=== PATIENT | female | born 2000 ===

== ENCOUNTER 2021-10-07 10:13 | Emergency (ER) | payer MEDICAID, SELFPAY ==
[2021-10-07 11:22] VITALS: BP 105/73; PULSE 105; RESP 18; TEMP 36.8; O2SAT 100; BMI 34.2
[2021-10-07 11:55] LABS: MANUAL DIFF FLAG NO
[2021-10-07 12:01] LABS: Basophils Percent Auto 0.1 % (0-2); Eosinophils Percent Auto 0.4 % (0-4); Hematocrit 39.8 % (37.0-47.0); Hemoglobin 12.9 g/dl (12.0-16.0); Imm Gran Abs Auto 0.02 X10*3/uL (0.00-0.03); Imm Gran Pct Auto 0.2 % (0.0-0.4); Lymphocytes Absolute Auto 1.5 X10*3/uL (1.2-4.9); Lymphocytes Percent Auto 18.2 % (20-40); Mean Corpuscular HGB Conc 32.4 g/dl (31.0-35.0); Mean Corpuscular Volume 86.5 fL (80.0-98.0); Mean Platelet Volume 10.5 fL (9.4-12.3); Monocytes Absolute Auto 0.4 X10*3/uL (0.1-1.2); Monocytes Percent Auto 4.3 % (2-11); Neutrophils Absolute Auto 6.5 x10*3/uL (2.0-8.3); Neutrophils Percent Auto 76.8 % (45-73); Platelet Count 296 X10*3/uL (160-400); Red Cell Distribution Width 12.6 % (11.0-16.0); White Blood Count 8.4 X10*3/uL (4.8-10.8)
[2021-10-07 12:21] LABS: Appearance Urine CLEAR; Color Urine STRAW; Glucose Urine UA NEG (NEG); Leukocyte Esterase Urine NEG (NEG); Nitrite Urine NEG (NEG); Specific Gravity - Urine <= 1.005 (1.005-1.025); Urine Blood NEG (NEG); Urine Ketones NEG (NEG); Urine Protein NEG (NEG-TRACE)
[2021-10-07 12:23] LABS: UPreg QC Valid YES; Urine Pregnancy NEGATIVE (NEGATIVE)
[2021-10-07 12:27] LABS: Alanine Aminotransferase 11 U/L (0-31); Albumin Level 4.5 g/dL (3.5-5.0); Alkaline Phosphatase 65 U/L (39-117); Anion Gap 12 (12-20); Aspartate Amino Transferase 19 U/L (5-31); Bilirubin Total 0.2 mg/dL (0.0-1.0); Blood Urea Nitrogen 12 mg/dL (9-16); Calcium 9.9 mg/dL (8.4-10.2); Carbon Dioxide 26 mmol/L (22-29); Chloride 102 mmol/L (96-108); Creatinine Clr Calc Pharmacy 99.1; Estimated Glomerular Filt Rate > 60; Glucose Random 110 mg/dL (60-115); Sodium 136 mmol/L (135-145); Total Protein 8.2 g/dL (6.5-8.0)
--- NOTE | 2021-10-07 13:22 | ED.FEMALEGU ---
HPI - Female Genitourinary General Chief complaint: Urogenital-Female Stated complaint: possibly exposed to STD/lesion on legs/abd pain Time Seen by Provider: 10/07/21 12:34 Source: patient Mode of arrival: ambulatory Limitations: no limitations History of Present Illness HPI Narrative: 21-year-old female came in with concern of STDs. Patient been having unprotected sex with a partner that she think is not faithful to her, patient noticed vaginal discharge with foul smell. Patient is concerned of HIV/syphilis. Patient also been having rash on her knees and her Pontic that his been itching for over a month, patient also is complaining of runny nose and sinus pressure had a history of sinusitis in the past. History of BV and herpes genitalis. Related Data Previous Rx's Medication Instructions Recorded amitriptyline 25 mg tablet 25 mg PO BEDTIME #90 tab 08/26/21 doxycycline monohydrate 100 mg 100 mg PO BID #14 tab 10/07/21 tablet Allergies Allergy/AdvReac Type Severity Reaction Status Date / Time No Known Allergies Allergy Verified 10/07/21 11:22 Review of Systems Review of Systems: All other systems are reviewed and are negative Constitutional: Reports as per HPI and Reports no additional constitutional complaints Eyes: Reports as per HPI and Reports no additional eye complaints Reports system reviewed and no additional complaints, except as documented Cardiovascular: Reports as per HPI and Reports no additional cardiovascular complaints Respiratory: Reports as per HPI and Reports no additional respiratory complaints Gastrointestinal: Reports as per HPI and Reports no additional gastrointestinal complaints Genitourinary: Reports no additional female genitourinary complaints Musculoskeletal: Reports no additional musculoskeletal complaints Skin/Breast: Reports system reviewed and no additional complaints, except as docu Psychiatric: Reports no additional psychiatric complaints Endocrine: Reports no additional endocrine complaints Hematologic/Lymphatic: Reports no additional hematologic/lymphatic complaints Allergic/Immunologic: Reports no additional allergic/immunologic complaints Reports system reviewed and no additional complaints, except as documented and Reports Abnormal speech present [facility] Past Medical History Medical History Anxiety Bipolar 1 disorder Myalgia TBI (traumatic brain injury) Physical Exam Vital Signs: Vital Signs: Last Vital Signs Temp 98.3 F 10/07/21 11:22 Pulse 105 H 10/07/21 11:22 Resp 18 10/07/21 11:22 BP 105/73 10/07/21 11:22 Pulse Ox 100 10/07/21 11:22 BMI result Body Mass Index 34.2 Vital signs have been reviewed as appeared to be correct. Blood pressure normal. Heart rate normal. Respiration rate normal. Temperature normal. Oxygen saturation normal. Appearance: Alert. Oriented X3. No acute distress. Head: Normal external exam. Normocephalic. Atraumatic. No Reveles signs noted. No raccoon eyes noted Eyes: PERRLA. EOMI. Conjunctiva and sclera normal. Eyelids normal. ENT: TM's Normal. Pharynx normal. Uvula midline. Moist mucous membranes. No trismus noted. No drooling noted. No muffled voice noted. Mild maxillary sinus tenderness with percussion, no nasal purulent discharge. Neck: Normal inspection. Neck supple. FROM. No adenopathy. Thyroid Normal. No meningeal signs. No neck mass noted. CVS: Normal heart rate and rhythm. Heart sound normal. No murmurs noted. Pulses normal throughout. Respiratory: No respiratory distress. Painless inspiration. Breath sounds normal. No wheezes/rales/rhonchi noted. Chest nontender. No accessory muscle usage noted or decreased air movement noted. Abdomen: Soft and nontender. Bowel sounds normal in all 4 quadrants. No distention noted. No organomegaly noted. No visible injury noted. Back: No CVA tenderness. Full range of motion noted. Skin: Skin warm and dry. Normal skin color. Normal skin turgor. No rashes/lesions/lacerations noted. Extremities: No lower extremity edema. Extremities exhibit normal range of motion. Extremities nontender. Neuro: Oriented X 3. Cranial nerve exam: II-XII are grossly intact No motor deficit. No sensory deficit. Reflexes normal. Course Course Course Narrative: Assessment and plan. 23-year-old female with history of unsafe sex with vaginal discharge concern of STDs, will treat prophylactically, patient do not have a PCP will check for HIV and syphilis. Patient also had symptoms of sinusitis will treat with doxycycline for 1 week for possible STD. MDM - Female Genitourinary Lab Data Result diagrams: 10/07/21 11:51 10/07/21 11:51 Labs: Lab Results 10/07/21 10/07/21 10/07/21 Range/Units 11:51 11:51 12:12 WBC 8.4 (4.8-10.8) X10*3/uL RBC 4.60 (4.20-5.50) X10*6/uL Hgb 12.9 (12.0-16.0) g/dl Hct 39.8 (37.0-47.0) % MCV 86.5 (80.0-98.0) fL MCH 28.0 (27.0-33.0) pg MCHC 32.4 (31.0-35.0) g/dl RDW 12.6 (11.0-16.0) % Plt Count 296 (160-400) X10*3/uL MPV 10.5 (9.4-12.3) fL Immature Gran % (Auto) 0.2 (0.0-0.4) % Neut % (Auto) 76.8 H (45-73) % Lymph % (Auto) 18.2 L (20-40) % Clark % (Auto) 4.3 (2-11) % Eos % (Auto) 0.4 (0-4) % Baso % (Auto) 0.1 (0-2) % Lymph # (Auto) 1.5 (1.2-4.9) X10*3/uL Clark # (Auto) 0.4 (0.1-1.2) X10*3/uL Eos # (Auto) 0.0 (0.0-0.4) X10*3/uL Baso # (Auto) 0.0 (0.0-0.2) X10*3/uL Abs Immat Gran (auto) 0.02 (0.00-0.03) X10*3/uL Absolute Neuts (auto) 6.5 (2.0-8.3) x10*3/uL Absolute Nucleated RBC 0.000 (0.0-0.012) X10*3/uL Nucleated RBC % (auto) 0.0 (0.0-0.2) /100WBC Sodium 136 (135-145) mmol/L Potassium 4.0 (3.3-5.1) mmol/L Chloride 102 (96-108) mmol/L Carbon Dioxide 26 (22-29) mmol/L Anion Gap 12 (12-20) BUN 12 (9-16) mg/dL Creatinine 0.83 (0.5-1.4) mg/dL Estim Creat Clear Calc 99.1 Estimated GFR > 60 Random Glucose 110 (60-115) mg/dL Calcium 9.9 (8.4-10.2) mg/dL Total Bilirubin 0.2 (0.0-1.0) mg/dL AST 19 (5-31) U/L ALT 11 (0-31) U/L Alkaline Phosphatase 65 (39-117) U/L Total Protein 8.2 H (6.5-8.0) g/dL Albumin 4.5 (3.5-5.0) g/dL Urine Color Urine Appearance Urine pH (5.0-8.0) Ur Specific [place] (1.005-1.025) Urine Protein (NEG-TRACE) MG/DL Urine Glucose (UA) (NEG) MG/DL Urine Ketones (NEG) MG/DL Urine Blood (NEG) Urine Nitrite (NEG) Ur Leukocyte Esterase (NEG) Urine Test NEGATIVE (NEGATIVE) 10/07/21 Range/Units 12:12 WBC (4.8-10.8) X10*3/uL RBC (4.20-5.50) X10*6/uL Hgb (12.0-16.0) g/dl Hct (37.0-47.0) % MCV (80.0-98.0) fL MCH (27.0-33.0) pg MCHC (31.0-35.0) g/dl RDW (11.0-16.0) % Plt Count (160-400) X10*3/uL MPV (9.4-12.3) fL Immature Gran % (Auto) (0.0-0.4) % Neut % (Auto) (45-73) % Lymph % (Auto) (20-40) % Clark % (Auto) (2-11) % Eos % (Auto) (0-4) % Baso % (Auto) (0-2) % Lymph # (Auto) (1.2-4.9) X10*3/uL Clark # (Auto) (0.1-1.2) X10*3/uL Eos # (Auto) (0.0-0.4) X10*3/uL Baso # (Auto) (0.0-0.2) X10*3/uL Abs Immat Gran (auto) (0.00-0.03) X10*3/uL Absolute Neuts (auto) (2.0-8.3) x10*3/uL Absolute Nucleated RBC (0.0-0.012) X10*3/uL Nucleated RBC % (auto) (0.0-0.2) /100WBC Sodium (135-145) mmol/L Potassium (3.3-5.1) mmol/L Chloride (96-108) mmol/L Carbon Dioxide (22-29) mmol/L Anion Gap (12-20) BUN (9-16) mg/dL Creatinine (0.5-1.4) mg/dL Estim Creat Clear Calc Estimated GFR Random Glucose (60-115) mg/dL Calcium (8.4-10.2) mg/dL Total Bilirubin (0.0-1.0) mg/dL AST (5-31) U/L ALT (0-31) U/L Alkaline Phosphatase (39-117) U/L Total Protein (6.5-8.0) g/dL Albumin (3.5-5.0) g/dL Urine Color STRAW Urine Appearance CLEAR Urine pH 6.0 (5.0-8.0) Ur Specific [place] <= 1.005 (1.005-1.025) Urine Protein NEG (NEG-TRACE) MG/DL Urine Glucose (UA) NEG (NEG) MG/DL Urine Ketones NEG (NEG) MG/DL Urine Blood NEG (NEG) Urine Nitrite NEG (NEG) Ur Leukocyte Esterase NEG (NEG) Urine Test (NEGATIVE) Discharge Plan Discharge Clinical Impression: Exposure to STD Patient Disposition: Home, Self-Care Instructions: Safe Sex Practices (ED) Prescriptions: New doxycycline monohydrate 100 mg tablet 100 mg PO BID Qty: 14 0RF No Action amitriptyline 25 mg tablet 25 mg PO BEDTIME Qty: 90 2RF Referrals: Physician,Unknown J [Primary Care Provider] - 2 days
[2021-10-07 14:26] LABS: CT PCR NOT DETECTED (Not Detect.); NG PCR NOT DETECTED (Not Detect.)
[2021-10-07] MEDS: cefTRIAXone sodium 500 MG, Lidocaine HCl 1 % MPF 1 ML IM (14:38)
[2021-10-07 16:03] LABS: HIV AB/AG Nonreactive (Nonreactive); HIV Num 1 0.13 S/CO (0.00-0.99)
[2021-10-08 03:40] LABS: Syphilis Screen Nonreactive (Nonreactive)
== END 2021-10-07 14:49 | disposition home or self-care (01) ==
LOC: HO.ED 13:47
PROVIDERS: Emergency Provider Emergency Medicine
DX: R21 Rash and other nonspecific skin eruption (principal); R09.89 Other specified symptoms and signs involving the circulatory and respiratory systems; Z20.2 Contact with and (suspected) exposure to infections with a predominantly sexual mode of transmission; Z79.899 Other long term (current) drug therapy
CPT/HCPCS: 36415; 80053; 81003; 81025; 85025; 86780; 87389; 87491; 87591; 96372; 99283; 99284; J0696

== ENCOUNTER → 2021-10-27 10:17 | Outpatient (BNVA) | payer OTHER, SELFPAY | PROVIDERS: PCP Internal Medicine; Visit Provider Psychiatry & Neurology Neurology | DX: G44.309 Post-traumatic headache, unspecified, not intractable (principal); M54.2 Cervicalgia; R41.89 Other symptoms and signs involving cognitive functions and awareness; R46.89 Other symptoms and signs involving appearance and behavior; S09.90XS Unspecified injury of head, sequela | CPT/HCPCS: 99212 ==

== ENCOUNTER → 2021-12-22 11:11 | Outpatient (BNVA) | payer OTHER, SELFPAY | PROVIDERS: PCP Internal Medicine; Visit Provider Psychiatry & Neurology Neurology | DX: G44.309 Post-traumatic headache, unspecified, not intractable (principal); R41.89 Other symptoms and signs involving cognitive functions and awareness; R46.89 Other symptoms and signs involving appearance and behavior; M54.2 Cervicalgia; S09.90XS Unspecified injury of head, sequela | CPT/HCPCS: 99212 ==

== ENCOUNTER 2021-12-30 13:11 | Outpatient (RCR) | payer OTHER, SELFPAY ==
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
== END 2022-05-26 13:18 | disposition still patient (30) ==
LOC: HO.SH 13:11
PROVIDERS: Visit Provider Psychiatry & Neurology Neurology
DX: R41.89 Other symptoms and signs involving cognitive functions and awareness (principal); R46.89 Other symptoms and signs involving appearance and behavior
CPT/HCPCS: 96125

== ENCOUNTER → 2022-03-27 15:17 | Outpatient (BNVA) | payer OTHER, SELFPAY | PROVIDERS: PCP Internal Medicine; Visit Provider Psychiatry & Neurology Neurology | DX: G44.309 Post-traumatic headache, unspecified, not intractable (principal); S09.90XS Unspecified injury of head, sequela; M54.2 Cervicalgia; R41.89 Other symptoms and signs involving cognitive functions and awareness; R46.89 Other symptoms and signs involving appearance and behavior | CPT/HCPCS: 99211 ==

== ENCOUNTER 2022-11-05 15:15 | Outpatient (RCR) | payer OTHER, SELFPAY | END 2022-11-27 11:39 | disposition home or self-care (01) | LOC: HO.SH 15:15 | PROVIDERS: Visit Provider Psychiatry & Neurology Neurology | DX: R41.89 Other symptoms and signs involving cognitive functions and awareness (principal); R46.89 Other symptoms and signs involving appearance and behavior | CPT/HCPCS: 92507 ==

== ENCOUNTER 2025-03-26 14:26 | Outpatient (AMB) | payer OTHER, SELFPAY ==
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
--- OUTSIDE RECORDS SUMMARY | 2025-03-26 15:09 | XMS_ITS ---
Author Name [facility] Organization Unknown Encounters Encounter Type Encounter Reason Primary Diagnosis Location Date Ambulatory [facility]ly [facility] 05/19/2024 Care Team Organization Name Specialty Phone Email Start Date End Da te [facility]ly [facility] 12/02/2024 [facility] Termed, PROVIDER Primary Care 06/16/202203/09
--- OUTSIDE RECORDS SUMMARY | 2025-03-26 15:09 | XMS_ITS | Clinical Summary ---
Author Organization [facility] Address [address] [place] [address] Care Team Providers Care Care Asst Name Role Phone Jeronimo Edwards MD Primary Care Provider [phone] Surgical History Surgery Date Site/Laterality Comments OTHER SURGICAL HISTORY PROCEDURE: DENIES PREVIOUS SURGERY Medical History Medical History Date Comments Asthma DX:Asthma Right ovarian cyst 12/08/2017 DX:Right ovar joe cyst Herpes simplex type 1 antibody positive 8 DX:Herpes simplex type 1 antibody positive Environmental allergies 02/07/2009 DX:Envir onmental allergies Depression 10/12/2014 DX:Depression Anxiety 10/12/2014 DX:Anxiety Acne 10/12/2014 DX:Acne Low back pain 07/28/2021 DX:Low back pain Asthma DX:Asthma Family History Medical History Relation Name Comments Hypertension Father Other: fibroid Mother Asthma Other MATERNAL SIDE Breast cancer Neg Hx Colon cancer Neg Hx Ovarian cancer Neg Hx Relation Name Status Comments Brother Alive 99 MAURICIO Father Alive Mother Alive Other Sister 1 Alive 1994 DAVID Sister 2 Alive 99 MARTHA Social History Tobacco Use Types Packs/Day Years Used Date Smoking Tobacco: Never Smokeless Tobacco: Never Alcohol Use Standard Drinks/Week Comments Not Currently 0 (1 standard drink = 0.6 oz pur e alcohol) Comments Unknown Sex and Gender Information Value Date Recorded Sex Assigned at Not on file Legal Sex Female 6:29 PM EST Gender Identity Not on file Sexual Orientation Not on file Obstetrics History Last Filed Vital Signs Vital Sign Reading Time Taken Comments Blood Pressure 119/77 05/21/2023 7:52 AM EDT Pulse 99 05/21/2023 7:52 AM EDT Temperature - - Respiratory Rate - - Oxygen Saturation - - Inhaled Oxygen Concentration - - Weight 77.6 kg (171 lb) 05/21/2023 7:52 AM EDT Height 152.4 cm (5') 05/21/2023 7:52 AM EDT Body Mass Index 33.4 05/21/2023 7:52 AM EDT Plan of Treatment Health Maintenance Due Date Last Done Comments Pneumococcal Vaccine: Pediatrics (0 to 5 Years) and At-Risk Patients (6 to 49 Years) (1 of 1 - PPSV23) 2005 12/28/2000, 08/19/2000, 06/22/2000 Cervical Cancer Screening: Pap Smear 2020 Cholesterol Screening (Lipid Panel) 07/11/2022 HIV Screening 07/11/2022 Hepatitis C Screening 07/11/2022 Social Influencers of Health Screening 07/11/2022 COVID-19 Vaccine ( season) 2024 10/11/2020, 09/13/2020 Depression Screening 2024 Influenza Vaccine (#1) 2025 , 06/29/2012, 07/17/2011, Additional history exists DTaP,Tdap,and Td Vaccines (8 - Td or Tdap) 01/21/2032 01/20/2022, 08/22/2010, 10/25/2003, Additional history exists HIB Vaccines Completed 12/28/2000, 02/06, 1999, Additional history exists IPV Vaccines Completed 10/25/2003, 04/10, 12/28/2000, Additional history exists MMR Vaccines Completed 10/25/2003, 12/28/2000 Varicella Vaccines Completed 08/22/2010, 06/10/2001 Meningococcal ACWY Vaccine Completed 12/08/2017, Meningococcal B Vaccine Aged Out 12/08/2017, 08/22 No longer eligible based on patient's age to complete this topic HPV Vaccines Completed 06/07/2018, 05/11, 09/13/2017, Additional history exists Hepatitis B Vaccines Completed 01/23/2022, 06/22/2000, 1999, Additional history exists Hepatitis A Vaccines Aged Out No long er eligible based on patient's age to complete this topic RSV Immunization Patients Under 20 months Aged Out No longer eligible based on patient's age to complete this topic Care Teams Care Asst Relationship Specialty Start Date End Date Jeronimo Edwards MD [address] [place] [id number] PCP - General Internal Medicine 07/18/21
== END 2025-03-26 15:06 | disposition home or self-care (01) ==
LOC: HO.HSM 14:26
PROVIDERS: PCP Internal Medicine; Referring Provider Internal Medicine; Visit Provider Registered Nurse
DX: F98.8 Other specified behavioral and emotional disorders with onset usually occurring in childhood and adolescence (principal); G43.909 Migraine, unspecified, not intractable, without status migrainosus; S06.9XAD Unspecified intracranial injury with loss of consciousness status unknown, subsequent encounter; F41.9 Anxiety disorder, unspecified; F32.A Depression, unspecified
CPT/HCPCS: 99214

== ENCOUNTER 2025-07-02 20:09 | Emergency (ER) | payer OTHER, SELFPAY ==
--- OUTSIDE RECORDS SUMMARY | 2025-06-27 12:36 | XMS_ITS | Continuity of Care Document ---
Author Organization [facility] ter Address [address] [place] [address]- Care Team Providers Care Clearing House Clerk Name Role Phone Yoanna SUAREZ, Leopoldo Primary Care Physici an [place] [facility] [place]): [place]/27/25 - 06/27/[address] [address]- Discharge Disposition: A-D/C Home Attending Physician: Batool Miner MD Admitting Physician: Batool Miner MD Referring Physician: Batool Miner MD Encounter Type: One Time OP Allergies, Adverse Reactions, Alerts No Known Allergies Immunizations Given and Recorded Vaccine Date Status Refusal Reason [id number] bivalent booster vax 07/09/22 Recorded influenza virus vaccine, inactivated 05/07/22 Alonzo rded influenza virus vaccine, inactivated 06/29/12 Alonzo rded influenza virus vaccine, inactivated 07/17/11 Alonzo rded influenza virus vaccine, inactivated 08/22/10 Alonzo rded influenza virus vaccine, inactivated 06/08/08 Alonzo rded influenza virus vaccine, inactivated 08/03/07 Alonzo rded hepatitis B adult vaccine 01/23/22 Recorded tetanus/diphtheria/pertussis, acel(Tdap) 01/20/22 Recorded tetanus/diphtheria/pertussis, acel(Tdap) 08/22/10 Recorded SARS-CoV-2 (COVID-19) mRNA-1273 vaccine 10/11/20 R ecorded SARS-CoV-2 (COVID-19) mRNA-1276 vaccine 09/13/20 R ecorded Human Papillomavirus Vaccine 06/07/18 Recorded Human Papillomavirus Vaccine 09/13/17 Recorded Human Papillomavirus Vaccine 11/11/15 Recorded Meningococcal Conjugate Vaccine 12/08/17 Recorded Meningococcal Conjugate Vaccine 08/22/10 Recorded Varicella Virus Vaccine 08/22/10 Recorded Varicella Virus Vaccine 06/10/01 Recorded Poliovirus Vaccine, Inactivated 10/25/03 Recorded Poliovirus Vaccine, Inactivated 04/29/01 Recorded Poliovirus Vaccine, Inactivated 99 Recorded Poliovirus Vaccine, Inactivated 99 Recorded Measles/Mumps/Rubella Virus Vaccine 10/25/03 Recor ded Measles/Mumps/Rubella Virus Vaccine 12/28/00 Recor ded diphtheria/tetanus/pertussis, acel(DTaP) 10/25/03 Recorded diphtheria/tetanus/pertussis, acel(DTaP) 04/29/01 Recorded diphtheria/tetanus/pertussis, acel(DTaP) 02/24/00 Recorded diphtheria/tetanus/pertussis, acel(DTaP) 99 Recorded diphtheria/tetanus/pertussis, acel(DTaP) 99 Recorded hepatitis B pediatric vaccine 06/22/00 Recorded hepatitis B pediatric vaccine 99 Recorded hepatitis B pediatric vaccine 99 Recorded Medications Albuterol (Eqv-ProAir HFA) 90 mcg/inh inhalation aerosol 2 puffs, Inhalation, Every 4 hours, # 1 each, 3 Refills, Maintenance, 03/02/25 9:56:00 PM EDT, [facility]/pharmacy #[id number], Partial fill upon patient request if the prescription is for a schedule II opioid drug., 2 puffs Inhalation Every 4 hours, 157, cm, 03/02/25 18:51:00 EDT, Height, 98, kg, 03/02/25 18:51:00 EDT, Dry Weight Start Date: 03/02/25 Status: Ordered Medication Dispense Status: Completed Quantity: 1.0 Unit: each Total Allowed Fills: 4 Fills Dispensed: 0 aspirin 81 mg oral delayed release tablet 2 tablet = 162 mg, By Mouth, Daily, # 180 tablet, 0 Refills, Maintenance, 04/19/25 2:23:00 PM EDT, CR Tablet, [facility]/pharmacy #[id number], Partial fill upon patient request if the prescription is for a schedule II opioid drug., 157, cm, 04/19/25 13:31:00 EDT, Height, 104.43, kg, 04/19/25 13:31:00 EDT, Dry Weight Start Date: 04/19/25 Status: Ordered Medication Dispense Status: Completed Quantity: 180.0 Unit: tablet Total Allowed Fills: 1 Fills Dispensed: 0 cloNIDine 0.1 mg oral tablet 0.1 mg, 1, tablet, By Mouth, 2 times a day, PRN, Maintenance, as needed for anxiety, 02/01/25 10:42:00 AM EDT Start Date: 02/01/25 Status: Ordered Medication Dispense Status: Completed Total Allowed Fills: 1 Fills Dispensed: 0 FLUoxetine 10 mg oral capsule 10 mg, 1, capsule, By Mouth, Daily, Refills 0, Maintenance, 03/19/25 10:21:00 AM EDT, Partial fill upon patient request if the prescription is for a schedule II opioid drug. Start Date: 03/19/25 Status: Ordered Medication Dispense Status: Completed Total Allowed Fills: 1 Fills Dispensed: 0 fluticasone 50 mcg/inh nasal spray 1 sprays = 50 mcg, Nares, Both, 2 times a day, PRN Congestion, # 16 Gm, 0 Refills, Maintenance, 05/07/25 3:35:00 PM EDT, [place], [facility]pharmacy #[id number], Partial fill upon patient request if the prescription is for a schedule II opioid drug., 1 sprays Nares, Both 2 times a day,PRN:Congestion, 157, cm, 05/07/25 15:02:00 EDT, Height, 109, kg, 05/07/25 15:02:00 EDT, Dry Weight Start Date: 05/07/25 Status: Ordered Medication Dispense Status: Completed Quantity: 16.0 Unit: g Total Allowed Fills: 1 Fills Dispensed: 0 Indications: Acute upper respiratory infection, unspecified; OXcarbazepine 300 mg oral tablet, extended release 1 tablet = 300 mg, By Mouth, Daily, # 30 tablet, 0 Refills, Maintenance, 06/08/25 9:29:00 AM EDT, ER Tablet, Partial fill upon patient request if the prescription is for a schedule II opioid drug. Start Date: 06/08/25 Status: Ordered Medication Dispense Status: Completed Quantity: 30.0 Unit: tablet Total Allowed Fills: 1 Fills Dispensed: 0 Plus oral tablet 1 tablet, By Mouth, Daily, Please fill vitamin that insurance covers., # 90 tablet, 5 Refills, Maintenance, 06/15/25 10:44:00 AM EST, Tablet, [facility]/pharmacy #[id number], Partial fill upon patient request if the prescription is for a schedule II opioid drug., 1 tablet By Mouth Daily,x90 days,Instr:Please fill vitamin that insurance covers., 157, cm, 06/15/25 9:48:00 EST, Height, 108.8, kg, 05/18/25 13:59:00 EDT, Dry Weight Start Date: 06/15/25 Stop Date: 12/07/26 Status: Ordered Medication Dispense Status: Completed Quantity: 90.0 Unit: tablet Total Allowed Fills: 6 Fills Dispensed: 0 QUEtiapine 100 mg oral tablet 100 mg, 1, tablet, By Mouth, Daily at bedtime, # 90 tablet, Refills 0, Maintenance, 06/08/25 9:30:00 AM EDT, Partial fill upon patient request if the prescription is for a schedule II opioid drug. Start Date: 06/08/25 Status: Ordered Medication Dispense Status: Completed Quantity: 90.0 Unit: tablet Total Allowed Fills: 1 Fills Dispensed: 0 Reglan 10 mg oral tablet 1 tablet = 10 mg, By Mouth, 4 times a day, # 120 tablet, 1 Refills, Maintenance, 05/05/25 12:03:00 AM EDT, Tablet, [facility]/pharmacy #[id number], 157, cm, 04/19/25 13:31:00 EDT, Height, 104.43, kg, 04/19/25 13:31:00 EDT, Dry Weight Start Date: 05/05/25 Stop Date: 07/04/25 Status: Ordered Medication Dispense Status: Completed Quantity: 120.0 Unit: tablet Total Allowed Fills: 2 Fills Dispensed: 0 Problem List Condition Confirmation Course Effective Dates Status H ealth Status Informant BRIDGER positive Confirmed Active Borderline personality disorder Confirmed Active Cervical radiculopathy Confirmed Active Back pain, chronic Confirmed Active Chronic pain Confirmed Active Sinus congestion Confirmed Active Constipation Confirmed Active Ear pressure Confirmed Active Endometriosis suspected Confirmed Active Echogenic intracardiac focus of fetus on ultrasound Confirmed Active Abnormal ultrasound Confirmed Active 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 Confirmed Active Herpes Confirmed Active Lumbar radiculopathy Confirmed Active Marijuana use, daily Confirmed Active Medication exposure during first trimester of Confirmed Active Obesity complicating Confirmed Active Myalgia of auxiliary muscles, head and neck Confirmed Active Raynaud phenomenon Confirmed Active Major depression, recurrent Confirmed Active Sciatica Confirmed Active Last Pap smear 03/27/2022 negative with negative HPV Confirmed Active Severe obesity (BMI 35.0-39.9) with comorbidity Confirmed Active Multilevel neural foraminal stenosis Confirmed Active TBI (traumatic brain injury) Confirmed Active Adenomyosis suspected Confirmed Active Vaginal discharge Confirmed Active Vital Signs Most recent to oldest [Reference Range]: 1 Height 157 cm (06/27/25 10:43 AM) Blood Pressure [90-138/55-84 mm Hg] 110/ 63mm Hg (06/27/25 11:01 AM) Temperature [96.8-100.4 DegF] 97.9 DegF (06/27/25 10:29 AM) Blood pressure sites Arm, right (06/27/25 11:01 AM) Temperature Route Oral (06/27/25 10:29 AM) Dry Weight 117.0 kg (06/27/25 10:29 AM) Dry Weight Obtained Via Standing scale (06/27/25 10:29 AM) Social History Social History Type Response Sexual Sexually involved in last 6 months: Yes. Smoking Status Never (less than 100 in lifetime) entered on: 03/19/25 Sex Female Sex Representation Female (finding) Note * Azra Sorto RN: PERFORM Event Display: Discharge/Transfer Note Hospital Authored Date: Nursing Discharge Note Entered On: 06/27/2025 12:31 EST Performed On: 06/27/2025 12:31 EST by Azra Sorto RN Nursing Discharge Note 2 Discharge Time : 06/27/2025 12:31 EST Discharge Level of Care at Discharge : Home/Retirement/Foster Care Patient Left Unit Via : Ambulatory Patient Accompanied Off Unit with : Significant other DC Instructions Provided & Signed by Pt : Yes Patient Understands D/C Instructions : Yes Patient Instructions Discharge Signed : Yes Did Pt have Specialty Bed or Wound Vac : No Azra Sorto RN - 06/27/2025 12:31 EST Electronically Signed on 06/27/25 12:31 PM Azra Sorto RN * Azra Sorto RN: PERFORM Event Display: Patient Education/Instruction Authored Date: [id number] Inpatient Adult Discharge Instructions. [address] [address] Name: ANN FLOYD : 2000?? Visit: 06/27/2025 10:18?? Current Date: 06/27/2025 12:26 ?? Account: [id number]?? Inpatient Adult Discharge Instructions We would like to thank you for allowing us to assist you with your healthcare needs. The following includes patient education materials and information regarding your injury/illness. Our entire staffstrives to provide an excellent experience for our patients and their families. PLEASE ENSURE YOU FOLLOW-UP PER THE INSTRUCTIONS BELOW! ?? YOUR OPINION IS IMPORTANT TO US! Please complete the survey you may receive by mail or email. Your feedback will be used to make improvements to the healthcare experiences of our patients and their families. Surveys are administered by [employer] ?? If further treatment with your primary care physician or another doctor is recommended, it is important for you to keep the appointment. Call your primary care physician or return to the Emergency Department immediately if your condition worsens, fails to improve, or new symptoms develop. If you need to find a doctor, you can call [facility] Link for a referral at [phone] or toll free at [phone] or log in to [email or web address].. ?? [facility], in keeping with [facility] guidance, no longer requires face masks for staff, patientsor visitors in most situations. Similiar to time spent indoors at other locations, there is the chance that you were exposed to repiratory viruses during your time with us (such as flu or COVID-19). If you develop symptoms concerning for a viral respiratory infection, please seek testing (and treatment if indicated) from your medical provider or home test kit. ?? You can view and manage your care through the patient portal or by using a health care ceci of your choosing. The [employer] is a website that allows you to securely view your medical information including your hospital discharge summary, office visit summaries, medications and follow-up visits. You can also request appointments, renew medications, and request access to your medical information using a health care ceci of your choosing, or just ask a question. You are entitled to know the individuals who participated in your treatment. This information is available within your medical record and will be provided upon your request. You can enroll at [email or web address] or register d uring your next office visit. You have been discharged from [facility], Patient Care Unit: [id number]??. If you have any questions regarding these instructions, including results of studies pending, afteryou leave, please call us and we will be happy to assist you 01/03. [facility] Your Care Team Attending Physician Batool Miner MD?? Consulting Providers Batool Miner MD?? Your Diagnosis Abnormal chromosomal and genetic finding on screening mother Adult BMI 40.0-44.9 kg/sq m BRIDGER positive Asthma Back pain, chronic Borderline personality disorder Echogenic intracardiac focus of fetus on ultrasound Endometriosis suspected Herpes Intrauterine Major depression, recurrent Rh negative status during Tests Performed Below is a partial list of the tests performed during your hospitalization. You may have had other tests and procedures not included in this list. Please discuss all test results with your provider. Urinalysis Complete?-- Results Pending -- Complete Urinalysis (Urinalysis Complete)?? Primary Care Provider Leopoldo Lenz MD? Advance Directive Health Care Proxy on File No Discharge Vitals Temperature: 97.9 DegF Height: 157 cm Systolic Blood Pressure: 110 mm Hg ?? Diastolic Blood Pressure: 63 mm Hg ?? Studies Pending All studies ordered during this hospital stay have been completed unless listed below. Please discuss all pending results with your provider listed above in these instructions. ?? Complete Urinalysis (Urinalysis Complete)?? What to do next Instructions From Your Doctor ?? Orders?? Scheduled Follow-Up Appointments Wednesday 2:30 PM EST ?? Type: Ultrasound FU Where: [facility] [address] [place] [address]- Status: Pending Wednesday 11:00 AM EST ?? Type: Return OB With: Suzan Boggs CNM Head Where: [facility] [employer] Non [address] [address]- Status: Pending Wednesday 1:20 PM EST ?? Type: Return OB With: Rebeca Alfaro CNM Where: [facility] [employer] Non [address] [address]- Status: Pending Wednesday2025 10:20 AM EST ?? Type: Return OB With: Yolanda Callaway CNM Where: [facility] [employer] Non [address] [address]- Status: Pending Discharge Medications ANN FLOYD :2000 Visit Date:06/27/2025 Medications: Please continue your medications until treatment is completed or stopped by your provider. Medications not listed below should be discontinued. Discuss any questions related to medications with your provider. What How Much When Why Instructions Next Dose Unchanged Albuterol (Albuterol (Eqv-ProAir HFA) 90 mcg/ inh inhalation aerosol) 2 puff(s) Inhalation Every 4 hours Ordering Physician: Lamberto Medrano MD Unchanged Aspirin (aspirin 81 mg oral delayed release tablet) 2 tab(s) Oral Daily Ordering Physician: Veronica Romero CNM Unchanged Clonidine (cloNIDine 0.1 mg oral tablet) 1 tab(s) Oral Twice a day as needed for as needed for anxiety Unchanged Fluoxetine (FLUoxetine 10 mg oral capsule) 1 capsule Oral Daily Unchanged Fluticasone Nasal (fluticasone 50 mcg/ inh nasal spray) 1 spray(s) Nares, Both Twice a day as needed for Congestion Upper respiratory infection, acute Ordering Physician: Maria L Saleem Unchanged Metoclopramide (Reglan 10 mg oral tablet) 1 tab(s) Oral 4 times a day Duration: 30 Days Ordering Physician: Inés Patel CNM Unchanged Multivitamin, ( Plus oral tablet) 1 tab(s) Oral Daily Duration: 90 Days Special Instructions: Please fill vitamin that insurance covers. Ordering Physician: Yessenia Santos CNM ?? Unchanged Oxcarbazepine (OXcarbazepine 300 mg oral tablet, extended release) 1 tab(s) Oral Daily Unchanged Quetiapine (QUEtiapine 100 mg oral tablet) 1 tab(s) Oral Daily at Bedtime Prescription Given During Visit No new medications prescribed at time of discharge.?? Laboratory Results Below is a partial list of the most recent Laboratory test results done prior to this discharge. You may have had other tests and procedures not included in this list. Please discuss all test resultswith your provider. Allergies (NKA means No Known Allergies) NKA Problems Active Problems??(28) Abnormal ultrasound?? Adenomyosis suspected?? BRIDGER positive?? Back pain, chronic?? Borderline personality disorder?? 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 Cervical radiculopathy?? Chronic pain?? Constipation?? Ear pressure?? Echogenic intracardiac focus of fetus on ultrasound?? Endometriosis suspected?? Herpes?? Last Pap smear 03/27/2022 negative with negative HPV?? Lumbar radiculopathy?? Major depression, recurrent?? Marijuana use, daily?? Medication exposure during first trimester of ?? Multilevel neural foraminal stenosis?? Myalgia of auxiliary muscles, head and neck?? Obesity complicating ? Raynaud phenomenon?? Sciatica?? Severe obesity (BMI 35.0-39.9) with comorbidity?? Sinus congestion?? TBI (traumatic brain injury)?? Vaginal discharge?? Education Materials Below is the list of Educational Leaflet Providered with your Discharge Instructions. [employer] Ignite Patient Education - Viral Syndrome (Adult)?? Valuables and Belongings I fully understand and agree that [facility] accepts no responsibility for all my personal property including clothing, toilet articles, radios, jewelry, dentures, hearing aids, rings, money, or any other property that is in my possession or is brought to me after admission. I understand certain valuables may be placed in a hospital safe for a short period of time. I understand that the hospital is not liable for loss or damage due to accident, fire, or other natural occurrence while said property is in the safe. I accept full responsibility for any personal property that I keep with me, and will not hold the hospital responsible in case of loss or disappearance. I acknowledge that i have been encouraged to send valuables and belongings home. ? Common Emergency Awareness Tips IS IT A STROKE? Act FAST and Check for these signs: FACE Does the face look uneven? ARM Does one arm drift down? SPEECH Does their speech sound strange? TIME Call at any sign of stroke ?? Heart Attack Signs Chest discomfort: Most heart attacks involve discomfort in the center of the chest and lasts more than a few minutes, or goes away and comes back. It can feel like uncomfortable pressure, squeezing, fullness or pain. Discomfort in upper body: Symptoms can include pain or discomfort in one or both arms, back, neck, jaw or stomach. Shortness of breath: With or without discomfort. Other signs: Breaking out in a cold sweat, nausea, or lightheaded. Remember, MINUTES DO MATTER. If you experience any of these heart attack warning signs, call to get immediate medical attention! ?? Smoking can increase your chances of developing chronic health problems and can cause harmful effects to other family members in your house. If you smoke, you are strongly encouraged to quit. Please call [facility] [employer] Link at [phone] or [phone] ([phone]) or log in to [email or web address] for referrals to smoking cessation programs. ?? 980 Suicide & Crisis Lifeline is available 01/03 if you or someone you know needs to find a reason to keep living. By calling 931 you'll be connected to a skilled, trained counselor at a crisis center in your area. INPATIENT DISCHARGE INSTRUCTIONS SIGNATURE PAGE ANN FLOYD Location:[facility] Registration Date and Time:06/27/2025 10:18 EST Primary Care Physician: Yoanna SUAREZ, Leopoldo, Attending Physician: Isidra SUAREZ, Batool, I ANN FLOYD, have received the above patient education materials/instructions and have verbalized understanding. If ambulance or transport services are being used I further acknowledge being given a choice of service. ?? If you need to contact me, please call me at this number: . Patient/Configuration Management Analyst Name: Patient/Configuration Management Analyst Signature: Relationship to Patient: Witness Name/Signature: Date: * Azra Sorto RN: PERFORM Event Display: Patient Education Leaflets Authored Date: [id number] Viral Syndrome (Adult) ?? [id number] Viral Syndrome (Adult) A viral illness may cause many symptoms such as fever, muscle aches, and fatigue. Other symptoms depend on the part of the body that the virus affects. If it settles in your nose, throat, and lungs, it may cause cough, sore throat, congestion, runny nose, headache, earache, or even shortness of breath. If it settles in your stomach and intestinal tract, it may cause nausea, vomiting, cramping, and diarrhea. Usually, it causes generalized symptoms like aching all over, feeling tired, loss of energy, or loss of appetite. A viral illness often lasts anywhere from a few days to a few weeks. But sometimes it lasts longer.In some cases, a more serious infection can look like a viral syndrome in the first few days of theillness. You may need another exam and additional tests to know the difference. Watch for the warning signs listed below for when to get medical advice. Home care Follow these guidelines for taking care of yourself at home: ??? If symptoms are severe, rest at home for the first 2 to 3 days. ??? Stay away from cigarette smoke???both your smoke and the smoke from others. ??? You may use [id number]-[id number]??acetaminophen or ibuprofen for fever, muscle aching, and headache, unless another medicine was prescribed for this. Antibiotics aren't used to treat viral infections. If you have chronic liver or kidney disease or ever had a stomach ulcer or gastrointestinal bleeding, talk with your health care provider before using these medicines. No one younger than age 18 years and ill with a fever should take aspirin. It may cause severe disease or . ??? Yourappetite may be poor, so a light diet is fine. Prevent dehydration by drinking 8 to 12 8-ounce glasses of fluids each day. This may include water, lemonade, juices like orange, apple, grape, and cranberry, clear fruit drinks, electrolyte replacement and sports drinks, and decaffeinated teas and coffee. If you've been diagnosed with a kidney disease, ask your provider how much and what types of fluids you should drink to prevent dehydration. If you have kidney disease, drinking too much fluid can cause it to build up in your body and be dangerous to your health. ??? Gjrs-osl-elbqfgp remedies won't shorten the length of the illness. But they may be helpful for symptoms such as cough, sore throat, nasal and sinus congestion, or diarrhea. Don't use decongestants if you have high blood pressure. ? Follow-up care Follow up with your health care provider if you don't get better over the next week. ?? Call 911 Call 911 if any of these occur: ??? Convulsion ??? Feeling weak, dizzy, or like you are going to faint ??? Chest pain, or more than mild shortness of breath ?? When to get medical advice Contact your health care provider right away if any of these occur: ??? Cough with thick, yellow orgreen sputum (mucus) or blood in your sputum. ??? Chest pain, shortness of breath, wheezing, or trouble breathing. ??? Severe headache, or face, neck, or ear pain. ??? Severe, constant pain in the lower right side of your belly (abdominal). ??? Continued vomiting (can???t keep liquids down). ??? Frequent diarrhea (more than 5 times a day), or blood (red or black color) or mucus in diarrhea. ??? Feeling weak, dizzy, or like you are going to faint. ??? Extreme thirst. ??? Fever of 100.4??F (38??C) or higher, or as directed by your provider. ??? You think you have the flu or you test positive for COVID and are at risk for severe illness. There are medicines called antivirals that can help you. ?? Last Reviewed Date: 2024 00:00:00 ?? [id number] The [employer] All rights reserved. This information is not intended as a substitute for professional medical care. Always follow your healthcare professional's instructions. ?? Patient Care team information Care Team Personnel Name: Yoanna SUAREZ, Leopoldo Position: [facility] Physician - Primary Care Member Role: PCP Address: [address] [place] [address] Telecom: Care Team Related Persons Name: PT, STATES NONE Name: FRANKLIN MENDOZA Name: MICHAEL VALERIO Insurance Providers Guarantor name: ANN [facility] Plan Information #: 1 Payer: [employer] Payer Identifier: CHRISTINA Member Number: [id number] Group Number: [id number] Subscriber Identifier: [id number] Relationship to Subscriber: self Coverage Type: Medicaid (Managed Care) Coverage Verification Date: CHRISTINA Telecom: CHRISTINA Address:
--- NOTE | ~2025-07-02 | US_ITS ---
CLINICAL HISTORY: RUQ eval for GB disease, 23 weeks preg US abdomen limited Comparison: None provided Findings: The liver is normal in size and echotexture. There is no intrahepatic bile duct dilatation. The common duct is 2 mm in diameter. The gallbladder is normal. There is no sonographic Feng sign. The main portal vein is antegrade. IMPRESSION: Unremarkable gallbladder. This document has been electronically signed by: Niurka Orantes MD on 07/02/2025 23:00:14
[2025-07-02 20:11] VITALS: BP 135/61; PULSE 112; RESP 20; TEMP 36.2; O2SAT 98; BMI 49.5
[2025-07-02 20:38] LABS: MANUAL DIFF FLAG NO
[2025-07-02 20:42] LABS: Hematocrit 34.6 % (37.0-47.0); Hemoglobin 11.1 g/dl (12.0-16.0); Imm Gran Abs Auto 0.05 X10*3/uL (0.00-0.03); Imm Gran Pct Auto 0.5 % (0.0-0.4); Lymphocytes Absolute Auto 0.7 X10*3/uL (1.2-4.9); Mean Corpuscular HGB Conc 32.1 g/dl (31.0-35.0); Mean Corpuscular Hemoglobin 26.4 pg (27.0-33.0); Mean Corpuscular Volume 82.4 fL (80.0-98.0); NRBC Abs Auto 0.000 X10*3/uL (0.0-0.012); NRBC Pct Auto 0.0 /100WBC (0.0-0.2); Platelet Count 210 X10*3/uL (160-400); Red Blood Count 4.20 X10*6/uL (4.20-5.50); White Blood Count 9.6 X10*3/uL (4.8-10.8)
[2025-07-02 20:56] LABS: Alanine Aminotransferase 19 U/L (0-31); Albumin Level 3.9 g/dL (3.5-5.0); Alkaline Phosphatase 80 U/L (39-117); Anion Gap 12 (12-20); Aspartate Amino Transferase 22 U/L (5-31); Blood Urea Nitrogen 7 mg/dL (9-16); Calcium 9.5 mg/dL (8.4-10.2); Carbon Dioxide 22 mmol/L (22-29); Chloride 106 mmol/L (96-108); Creatinine Clr Calc Pharmacy 165.8; Estimated Glomerular Filt Rate > 60; Potassium 3.8 mmol/L (3.3-5.1); Sodium 136 mmol/L (135-145); Total Protein 7.5 g/dL (6.5-8.0)
[2025-07-02 21:18] LABS: Lipase 12 U/L (8-78)
[2025-07-02 21:21] LABS: Appearance Urine Clear; Glucose Urine UA Negative (Negative); PH 7.0 (5.0-9.0); Specific Gravity - Urine <= 1.005 (1.005-1.025)
[2025-07-02 21:45] VITALS: BP 146/68; PULSE 107; RESP 16; TEMP 36.8; O2SAT 98
--- NOTE | 2025-07-02 21:59 | ED_ITS ---
HPI - Abdominal Pain General Chief Complaint: Abdominal Pain Stated Complaint: 23 wks , abd pain, dizzy, unable to eat Time Seen by Provider: 07/02/25 21:12 Source: patient Mode of arrival: ambulatory Limitations: no limitations History of Present Illness ED Provider: Dr. Lorrie Samuel HPI narrative: 24-year-old at 23 weeks? gestation who presents with 7 days of persistent epigastric abdominal pain associated with nausea and intermittent vomiting. Symptoms began last Wednesday night with sudden upper abdominal pain followed by diarrhea; pain worsened the following morning prompting a visit to [facility] visit where she was told it was likely viral gastroenteritis and advised light diet. NST was reportedly normal. She felt somewhat better but remained very hungry and consumed several pieces of bread; diarrhea persisted and was ?violent? yesterday. Early this morning (~0600) she awoke with severe, constant epigastric pain not relieved by rest. Attempts at oral intake (water, juice, soup, small meals) immediately exacerbate the pain and trigger vomiting; she has vomited three times today (including en route to ED) with associated urinary incontinence during a vomiting episode. No hematemesis. She has been unable to have a bowel movement today and feels ?backed up.? Denies fever but felt mildly warm earlier; feels achy and fatigued. Also reports a sudden, severe headache today?worse than her usual sensory-triggered migraines?and has taken no medications for it. No sick contacts. Last meal last night included beef in tomato sauce with rice and some Macedonian food that ?didn?t taste right.? No prior abdominal surgery; gallbladder and appendix intact. Colonoscopy February 2025 reportedly normal. Endoscopy one year ago for endometriosis work-up. Related Data Home Medications ?Medication ?Instructions ?Recorded ?Confirmed fluticasone propionate 50 1 spray intranasal DAILY 03/27/22 mcg/actuation nasal spray,suspension (Allergy Relief (fluticasone)) ondansetron 4 mg disintegrating 4 mg PO Q8H 10/23/21 0 03/26/25 tablet fluticasone propionate 110 1 puff inhalation BID 10/2703/27/22 mcg/actuation HFA aerosol inhaler (Flovent HFA) clonidine HCl 0.1 mg tablet 0.1 mg PO BEDTIME 03/26/25 03/26/25 oxcarbazepine 300 mg tablet 300 mg PO DAILY 03/26/25 0 03/26/25 (Trileptal) quetiapine 100 mg tablet 150 mg PO DAILY 03/26/25 Previous Rx's ?Medication ?Instructions ?Recorded albuterol sulfate 90 mcg/actuation 1 inh inhalation QI D #90 grams 10/23/21 aerosol inhaler ondansetron 4 mg disintegrating 4 mg PO Q8H PRN nausea and 07/03/25 tablet vomiting #10 tabs Allergies Allergy/AdvReac Type Severity Reaction Status Date / Time No Known Allergies Allergy Verified 07/02/25 20:13 Review of Systems Review of Systems as per HPI, full review of systems performed and negative but for the above mentioned pertinent positives and negatives. [facility] Past Medical History Medical History Myalgia Bipolar 1 disorder Anxiety TBI (traumatic brain injury) Family History Family History Father HTN (hypertension) Social History Social History Household Members: None Alcohol intake: never Patient Tobacco Use Status: Never used Tobacco Smoked in Last 30 Days: No Use of substances other than those prescribed or required for medical reasons: No Advance Directives: No Advance Directives Information Provided: No Patient : Yes Current occupational status: employed Physical Exam ED Exam Exam: GENERAL: Well-Appearing, appears uncomfortable. SKIN: Normal skin color for ethnicity, warm, dry, no rashes noted. HEENT: Normocephalic, atraumatic, no stridor, EOMI. NECK: Full ROM. CHEST: Heart regular tachycarida, symmetric chest rise and fall. PULMONARY: No labored breathing. ABDOMINAL: Gravid, nontender, quiet bowel sounds : Normal external genitalia, no , no fluid or bleeding MUSCULOSKELETAL: Normal tone, full range of motion, no deformities, no peripheral edema. NEURO: Alert and oriented x3, no focal neurologic deficits. PSYCHIATRIC: Anxious affect, fluid speech, good eye contact and cooperative. Vital Signs: Vital Signs - 24 hr 07/02/25 20:11 07/02/25 21:45 07/02/25 22:03 Temperature 97.1 F 98.2 F 98.4 F Pulse Rate 112 H 107 H 105 H Respiratory Rate 20 16 16 Blood Pressure 135/61 146/68 H 113/63 Pulse Oximetry 98 98 99 Oxygen Delivery Method Room Air Room Air Room Air BMI result Body Mass Index 49.5 Medical Decision Making Medical Decision Making MDM Narrative: 24-year-old patient (, 23 weeks) with epigastric abdominal pain, nausea/vomiting, and recent diarrhea. Differential includes biliary colic/cholelithiasis, viral gastroenteritis, gastritis, and dehydration. Labs reassuring; imaging pending. Problem #1: Epigastric abdominal pain with nausea/vomiting ? r/o biliary colic vs viral gastroenteritis Assessment: Persistent epigastric pain exacerbated by oral intake, vomiting, prior episode of diarrhea. increases gallbladder disease risk. Normal LFTs; RUQ US pending. Plan: * RUQ abdominal ultrasound today to assess gallbladder. * Begin IV fluids for rehydration. * Administer -safe antiemetic prior to any oral intake ( vitamin, aspirin). * Advance diet as tolerated; residential counselor on small, frequent meals (?grazing?). * Monitor heart rate and reassess pain after fluids/meds. Problem #2: ? 23 weeks, Assessment: No current obstetric complications reported; movement present; patient on baby aspirin for preeclampsia risk. FHTs 156bpm Plan: * Continue daily low-dose aspirin as prescribed. * Ensure vitamin given after antiemetic administration. Problem #3: Headache ? severe, atypical for usual migraine Assessment: Sudden severe headache today, worse than baseline migraines; temporally associated with nausea/vomiting. Plan: * Will administer -safe antiemetic as discussed; tylenol for analgesia. Problem #4: Dehydration / Tachycardia Assessment: Dry appearance and elevated heart rate likely secondary to fluid losses from vomiting/diarrhea. Plan: * IV crystalloid bolus; reassess vitals and hydration status. Follow-up: Patient will be re-evaluated in the ED after labs, fluids, medications, and ultrasound results. Disposition dependent on clinical response and imaging findings. 1:05 AM 07/03/2025 (Dr. Lorrie Samuel, D.O.) ultrasound shows no evidence of acute cholecystitis or cholelithiasis. The patient is now tolerating oral intake after IV hydration and antiemetics. She ultimately decided to take the Tylenol which she initially refused. Discussed importance of follow up as well as strict return precautions. Provided with short course of ondansetron for nausea. Discharged in stable condition. Differential Diagnosis Differential Diagnoses: The differential diagnosis associated with the presentation includes (as above) Admission/Observation Consideration of admission/observation: Escalation of care including admission/observation considered Lab Data MDM Lab Attestation statement: I reviewed the patient's lab results. 07/02/25 20:33 07/02/25 20:33 Labs: Lab Results 07/02/25 07/02/25 Range/Units 20:33 21:15 WBC 9.6 (4.8-10.8) X10*3/uL RBC 4.20 (4.20-5.50) X10*6/uL Hgb 11.1 L (12.0-16.0) g/dl Hct 34.6 L (37.0-47.0) % MCV 82.4 (80.0-98.0) fL MCH 26.4 L (27.0-33.0) pg MCHC 32.1 (31.0-35.0) g/dl RDW 13.7 (11.0-16.0) % Plt Count 210 D (160-400) X10*3/uL MPV 10.0 (9.4-12.3) fL Immature Gran % (Auto) 0.5 H (0.0-0.4) % Neut % (Auto) 88.0 H (45-73) % Lymph % (Auto) 7.3 L (20-40) % [place] % (Auto) 3.8 (2-11) % Eos % (Auto) 0.2 (0-4) % Baso % (Auto) 0.2 (0-2) % Lymph # (Auto) 0.7 L (1.2-4.9) X10*3/uL [place] # (Auto) 0.4 (0.1-1.2) X10*3/uL Eos # (Auto) 0.0 (0.0-0.4) X10*3/uL Baso # (Auto) 0.0 (0.0-0.2) X10*3/uL Abs Immat Gran (auto) 0.05 H (0.00-0.03) X10*3/uL Absolute Neuts (auto) 8.4 H (2.0-8.3) x10*3/uL Absolute Nucleated RBC 0.000 (0.0-0.012) X10*3/uL Nucleated RBC % (auto) 0.0 (0.0-0.2) /100WBC Sodium 136 (135-145) mmol/L Potassium 3.8 (3.3-5.1) mmol/L Chloride 106 (96-108) mmol/L Carbon Dioxide 22 (22-29) mmol/L Anion Gap 12 (12-20) BUN 7 L (9-16) mg/dL Creatinine 0.60 (0.5-1.4) mg/dL Estim Creat Clear Calc 165.8 Estimated GFR > 60 Random Glucose 88 (60-115) mg/dL Calcium 9.5 (8.4-10.2) mg/dL Total Bilirubin 0.3 (0.0-1.0) mg/dL AST 22 (5-31) U/L ALT 19 (0-31) U/L Alkaline Phosphatase 80 (39-117) U/L Total Protein 7.5 (6.5-8.0) g/dL Albumin 3.9 (3.5-5.0) g/dL Lipase 12 (8-78) U/L Beta HCG, Quant 6046 mIU/mL Urine Color Yellow Urine Appearance Clear Urine pH 7.0 (5.0-9.0) Ur Specific [place] <= 1.005 (1.005-1.025) Urine Protein Negative (Neg-Trace) mg/dL Urine Glucose (UA) Negative (Negative) mg/dL Urine Ketones Trace (Negative) mg/dL Urine Blood Negative (Negative) Urine Nitrite Negative (Negative) Ur Leukocyte Esterase Negative (Negative) Radiology Impression Discussion of test interpretation with radiology: I have reviewed the radiologist's reading. Independent Historian Clinical information obtained from an independent historian. History obtained from or confirmed by: Spouse External Record Review External record reviewed: Inpatient record and Office record Prescription Management I considered prescription management with: Pain Medication and Other (Antiemetics) Chronic Conditions Patient?s care impacted by: Other (-induced hypertension, depression, migraine headaches) Social Determinants Patient?s care significantly limited by Social Determinants of Health including: Other Social Determinant of Health Medications Administered Discontinued Medications Generic Name Dose Route Start Last Admin Trade Name Freq PRN Reason Stop Dose Admin Acetaminophen 650 mg 07/02/25 21:56 07/02/25 22:58 Acetaminophen 325 Mg Tablet PO 07/02/25 21:57 650 mg ONCE ONE Administration Lactated Ringer's 1,000 mls @ 999 mls/hr 07/02/25 21:56 07/02/25 22:58 Lr IV 07/02/25 22:56 999 mls/hr .Q1H1M ONE Administration Ondansetron HCl 4 mg 07/02/25 21:56 07/02/25 22:57 Ondansetron Hcl 4 Mg/2 Ml Vial IVPUSH 07/02/25 21:57 4 mg ONCE ONE Administration Discharge Plan Discharge Clinical Impression: Gastroenteritis, Second trimester Patient Disposition: Home, Self-Care Instructions: Gastroenteritis (ED), at 23 to 26 Weeks (ED) Additional Instructions: DIAGNOSIS & TREATMENT: You were seen in the Emergency Department for your abdominal pain. We performed lab work and an ultrasound of your gallbladder which did not reveal any acute abnormalities that would explain your symptoms. Your pain is most likely related to gastroenteritis which is the stomach flu. FURTHER CARE: We have not found any emergent physical exam or lab abnormalities that would require admission to the hospital today. Many people who come to the ER with abdominal pain do not leave with a specific diagnosis at the end of their visit. In the Emergency Department we try to make sure that there is no emergent problem that needs surgery or antibiotics right now. This does not mean that your evaluation is complete--please be sure to follow up with your regular doctor as additional testing as an outpatient may be indicated Please be certain to drink plenty of fluids over the next several. You should advance your diet as tolerated. You may wish to start with the BRAT diet (bananas, rice, applesauce, toast). WHEN YOU SHOULD BE SEEN NEXT: Please follow-up with your primary care provider and OBGYN within the next 2-3 days for reevaluation of your symptoms. WHEN TO RETURN TO THE ED: Monitor your symptoms closely and return to the emergency department immediately for any new/worsening symptoms, worsening abdominal pain, pain which changes location (particularly if it moved to the right lower quadrant), nausea, vomiting, blood in your stool, black/tarry stools, chest pain, shortness of breath, fevers, chills, night sweats, you are unable to arrange follow-up care, or any other concerning symptoms. Prescriptions: New ondansetron 4 mg tablet,disintegrating 4 mg PO Q8H PRN (Reason: nausea and vomiting) Qty: 10 0RF No Action albuterol sulfate 90 mcg/actuation HFA aerosol inhaler 1 inh inhalation QID Qty: 90 0RF fluticasone propionate [Allergy Relief (fluticasone)] 50 mcg/actuation spray,suspension 1 spray intranasal DAILY Rx Instructions: administer into each nostril ondansetron 4 mg tablet,disintegrating 4 mg PO Q8H Flovent HFA 110 mcg/actuation HFA aerosol inhaler 1 puff inhalation BID quetiapine 100 mg tablet 150 mg PO DAILY oxcarbazepine [Trileptal] 300 mg tablet 300 mg PO DAILY clonidine HCl 0.1 mg tablet 0.1 mg PO BEDTIME Print Language: [place] Islander
[2025-07-02 22:03] VITALS: BP 113/63; PULSE 105; RESP 16; TEMP 36.9; O2SAT 99
[2025-07-02] MEDS: Lactated Ringers 1,000 ML 999 ML IV (22:58)
--- OUTSIDE RECORDS SUMMARY | 2025-07-02 22:58 | XMS_ITS | Clinical Summary ---
Author Organization [employer] [facility] ity Address [address] [place] [address] Care Team Providers Care Fire Engineer Name Role Phone Jeronimo Edwards MD Primary Care Provider [phone] Surgical History Surgery Date Site/Laterality Comments OTHER [...] to 49 Years) (1 of 1 - PPSV23, PCV20, or PCV21) 2005 12/28/2000, 08/19/2000, 06/22/2000 Cervical Cancer Screening: Pap Smear 2020 Cholesterol Screening (Lipid Panel) 07/11/2022 HIV Screening 07/11/2022 Hepatitis C Screening 07/11/2022 Social Influencers of Health Screening 07/11/2022 Depression Screening 2024 COVID-19 Vaccine ( season) 2025 10/11/2020, 09/13/2020 Influenza Vaccine (#1) 2025 , 06/29/2012, 07/17/2011, Additional history exists DTaP,Tdap,and Td Vaccines (8 - Td or Tdap) 01/21/2032 01/20/2022, 08/22/2010, 10/25/2003, Additional history exists RSV Immunization Adult Patients (1 - 1-dose 75+ series) 2074 HIB Vaccines Completed 12/28/2000, 02/06, 1999, Additional [...] age to complete this topic Care Teams Fire Engineer Relationship Specialty Start Date End Date Jeronimo Edwards MD PCP - General Internal Medicine 07/18/21
--- OUTSIDE RECORDS SUMMARY | 2025-07-02 22:58 | XMS_ITS | Data Portability ---
Author Organization [place] - [facility], Allergy Address [address] [place] [address] Care Team Providers Care Optical Engineer Name Role Phone ROBERTABENITA KOURTNEY Primary Care Provider Assessment Encounter Date Assessment Date Assessment LastModified by Organization Details LastModified Time 06/29/2024 06/29/2024 23 year old female presents for evaluation of nasal congestion and sensation of fluid in the right ear. Her TMs are intact with well aerated middle ear spaces bilaterally. Nasal endoscopy was normal. I have ordered a CT of her sinuses. I have recommended that she use both Zyrtec and Flonase daily and have issued her prescriptions for these medications. We will plan to obtain a hearing test at her follow up after CT sinus. Patient was also seen and examined by Dr. Richardson. Nasal endoscopy was performed with Dr. Richardson. [email or web address] Not available 06/29/2024 12:45:45 Plan of Treatment Reminders Order Date Submit Date Provider Last Modified By Organization Details Last Modified Time Details Appointments None recorded. Lab None recorded. Referral None recorded. Procedures None recorded. Surgeries None recorded. Imaging CT, maxillofac ial, w/o contrast 2023 024 [facility] (Imaging), [address] [place] [address], [id number], 11:19:08 Medication Orders cetirizine 10 mg tablet 2023 024 [facility]/Pharmacy #[id number], [phone] [place], [address], 4 11:17:39 Flonase Allergy Relief 50 mcg/actuat ion nasal spray,susp ension 2023 024 [facility]/Pharmacy #[id number], [phone] [place], [address], 4 11:18:02 Patient TargetsNo targets recorded. Patient InstructionsNo instructions recorded. Reason for Referral None Reported. Problems Name Problem SNOMED Code Status Onset Date Resolution Date Notes Provider Name and Address Organization Details Recorded Time Impacted cerumen in left ear 44511989138 02351 Active 2019 Impacted cerumen, left ear; Note: Date Diagnosed : 03/06/2020 4:00 PM (H61.22) Not Available [facility] 4 02:20:52 Chronic sinusitis 98803251 Active 2021 Chronic sinusitis , unspecifi ed; Note: Date Diagnosed : 11/27/2021 4:39 PM (J32.9) Not Available [facility] 4 02:21:00 Allergic rhinitis 28107071 Active 2021 Allergic rhinitis, unspecifi ed; Note: Date Diagnosed : 11/27/2021 4:39 PM (J30.9) Not Available [facility] 4 02:20:59 Problem Notes None recorded. Procedures Surgical History Date Name Laterality Status Provider Name and Address Organization Details Recorded Time 06/29/2024 NasalEndos copy_DP completed Shayla Mayberry [place] - [facility] 06/29/2024 12:44:01 Imaging Results None recorded. Procedure Notes None recorded. Medical Equipment None Reported. Medications Name Sig Start Date Stop Date Status Note LastModified by Organization Details LastModified Time celecoxib 200 mg capsule TAKE 1 CAPSULE 2 TIMES A DAY, TAKE WHILE ON PERIOD CAN TAKE WITH TYLENOL DO NOT MIX WITH IBUPROFEN active Not Available Not Available No t Available terconazol e 0.4 % vaginal cream INSERT 1 APPLICATO RFUL VAGINALLY AT BEDTIME FOR 7 DAYS active Not Available Not Available No t Available oxcarbazep ine 150 mg tablet TAKE 1 TABLET BY MOUTH TWICE A DAY TAKE WITH 450MG TAB (450MG TOTAL TWICE A DAY) active Not Available Not Available No t Available clonidine HCl 0.1 mg tablet TAKE 1 TABLET BY MOUTH TWICE A DAY NEEDED FOR ANXIETY/ SLEEP active Not Available Not Available No t Available acetaminop hen 325 mg tablet TAKE 2 TABLETS BY MOUTH EVERY 4 HOURS NEEDED FOR PAIN active Not Available Not Available No t Available prednisone 10 mg tablet 2021 active Medicatio n ID: [id number] Pr escribed By Name: COMFORT Grimaldo Name: prednison e Send Method: E-Prescri bed Subs Allowed: subs OK Specia l Instructi on: Take 4 tablets by mouth once a day x 5 days [facility] cationGen ericName: prednison e Not Available Not Available Not Available clindamyci n HCl 300 mg capsule TAKE 1 CAPSULE BY MOUTH TWICE A DAY FOR 7 DAYS active Not Available Not Available No t Available Apri 0.15 mg-0.03 mg tablet TAKE 1 TABLET BY MOUTH EVERY DAY active Not Available Not Available No t Available cetirizine 10 mg tablet TAKE 1 TABLET BY MOUTH EVERY DAY 2024 active Not Available Not Available Not Avai lable fluconazol e 150 mg tablet TAKE 1 TABLET BY MOUTH ONCE *REPEAT DOSE IF STILL HAVING SYMPTOMS IN 72 HOURS active Not Available Not Available No t Available sumatripta n 100 mg tablet TAKE 1 TABLET BY MOUTH AT ONSET OF MIGRAINE, MAY REPEAT ONCE, UP TO TWICE DAILY, 9 TABS/30 DAYS active Not Available Not Available No t Available metronidaz ole 500 mg tablet TAKE 1 TABLET BY MOUTH EVERY 12 HOURS FOR 7 DAYS active Not Available Not Available No t Available oxcarbazep ine 300 mg tablet TAKE 1 TABLET BY MOUTH TWICE A DAY TAKE WITH 150MG TAB (450MG TOTAL TWICE A DAY) active Not Available Not Available No t Available valacyclov ir 500 mg tablet TAKE 1 TABLET BY MOUTH EVERY DAY active Not Available Not Available No t Available tramadol 50 mg tablet TAKE 1 TABLET BY MOUTH EVERY 12 HOURS NEEDED FOR PAIN active Not Available Not Available No t Available quetiapine 100 mg tablet TAKE 1 TABLET BY MOUTH DAILY AT BEDTIME NEEDED FOR SLEEP active Not Available Not Available No t Available dextroamph etamine sulfate 10 mg tablet TAKE 1 TABLET BY MOUTH IN THE MORNING TWICE A DAY active Not Available Not Available No t Available amitriptyl ine 25 mg tablet TAKE 3 TABLETS BY MOUTH EVERY DAY AT BEDTIME active Not Available Not Available No t Available dicyclomin e 20 mg tablet TAKE 2 TABLETS BY MOUTH 4 TIMES A DAY NEEDED FOR MODERATE PAIN FOR ABDOMINAL CRAMPING active Not Available Not Available No t Available Nortrel 0.5/35 (28) 0.5 mg-35 mcg tablet 2019 active Medicatio n ID: [id number] Du ration Value: 84 Brand Name: Nortrel 0.5/35 (28) Send Method: E-Prescri bed Subs Allowed: subs OK Specia l Instructi on: TAKE 1 TABLET BY MOUTH EVERY DAY Medic ationGene ricName: Nortrel 0.5/35 (28) Not Available Not Available Not Available buspirone 10 mg tablet TAKE 2 TABLETS BY MOUTH TWICE A DAY active Not Available Not Available No t Available hydroxyzin e HCl 25 mg tablet 2019 active Medicatio n ID: [id number] Du ration Value: 30 Brand Name: hydroxyzi ne HCl Send Method: E-Prescri bed Subs Allowed: subs OK Specia l Instructi on: TAKE 1 TABLET BY MOUTH TWICE A DAY NEEDED FOR AGITATION /ANXIETY Medicatio nGenericN liz: hydroxyzi ne HCl Not Available Not Available Not Available ibuprofen 600 mg tablet TAKE 1 TABLET BY MOUTH FOUR TIMES A DAY NEEDED FOR PAIN active Not Available Not Available No t Available fluticason e propionate 50 mcg/actuat ion nasal spray,susp ension INSTILL 2 SPRAYS BY INTRANASA L ROUTE EVERY DAY 2024 active Not Available Not Available Not Avai lable sertraline 50 mg tablet 2019 active Medicatio n ID: [id number] Du ration Value: 30 Brand Name: sertralin e Send Method: E-Prescri bed Subs Allowed: subs OK Specia l Instructi on: TAKE 1 TABLET BY MOUTH EVERY DAY FOR DEPRESSIO N Medicat ionGeneri cName: sertralin e Not Available Not Available Not Available amoxicilli n 875 mg-potassi um clavulanat e 125 mg tablet TAKE 1 TABLET BY MOUTH TWICE A DAY FOR 10 DAYS active Not Available Not Available No t Available oxycodone 5 mg tablet TAKE 1 TABLET BY MOUTH EVERY 6 HOURS NEEDED FOR PAIN active Not Available Not Available No t Available topiramate 50 mg tablet TAKE 1 TABLET BY MOUTH EVERY DAY FOR 30 DAYS active Not Available Not Available No t Available Vitals Date Recorded Body height Body mass index (BMI) Body weight Provider Name and Address Organization Details Last Updated DateTime 06/29/2024 152.4 cm 38.1 kg/m2 42090.51 g Hanane Lerma [place] - [facility] 06/29/2024 10:55:21 Social History None recorded. Functional Status None recorded. Mental Status None recorded. Family History Nothing Reported. Medical History No medical history recorded. Gynecological HistoryNo gynecological history recorded. Obstetrics History GPAL:G 0 P 0 0 0 0 Past Encounters Encounter ID Performer Location Encounter Start Date Encounter Closed Date Diagnosis/Indication Diagnosis SNOMED-CT Code Diagnosis ICD10 Code Diagnosis IMO Codes Diagnosis Note [id number] SHAYLA MAYBERRY PA-C [facility] [address] [address] 06/29/2024 10:43:18 06/29/2024 11:18:47 Chronic sinusitis 37846950 J32.9 Health Concerns Section Related Observation LastModified by Organization Detai ls LastModified Time None Recorded Concern Status LastModified by Organization Details LastModified Time None Recorded Advance Directives Directive None Recorded Payers Insurance Date Sequence Insurance Name Policy Number Policy Brantley Covered Member ID Brantley Member ID Guarantor Name 06/29/2024 1 [facility] (MEDICAID REPLACEMENT - HMO) [id number] Sushma L L Narinder [id number] Sushma L Narinder 06/29/2024 1 [facility] (MEDICAID HMO) Sushma L Narinder [id number] Sushma L Narinder 06/29/2024 2 [facility] (MEDICAID HMO) Sushma L Narinder [id number] Sushma L Narinder Notes Date Note Type Note Provider Name and Address Organization Details Recorded Time 06/29/2024 text/html ROS as noted in the HPI 23 year old reports nasal congestion and a sensation of fluid in her right ear for the past couple of months. She reports a couple of weeks ago that she had a nosebleed. It was right sided and only occurred once. She has a history of environmental allergies. She has not been using Flonase or oral antihistamine. She was recently hospitalized for mental health. EDGAR RICHARDSON MD [address] [place] [address], [place], [address], [facility] - [facility] 07/01/2024 14:54:22 OBGyn Episode No OBEpisode recorded.
--- OUTSIDE RECORDS SUMMARY | 2025-07-02 22:58 | XMS_ITS | Clinical Summary ---
Author Organization [facility] Address [address] [place] [address] Care Team Providers Care Candles Pourer Name Role Phone Jeronimo Edwards MD Primary Care Provider [phone] Allergies No known active allergies Medications Medication [...] (Pap Smear) 2020 COVID-19 Vaccine ( season) 2025 10/11/2020, 09/13/2020 Influenza Vaccine (#1) 2025 2, [...] Group Subscriber ID Effective Dates Phone Address [facility] [id number] 2022-Prese nt [address] [place] [address] [place] MEDICAID [facility] MEDICAID [facility] [id number] 2023-Pre s ent [address] [place] [address] Medicaid Care Teams Candles Pourer Relationship Specialty Start Date End Date Jeronimo Edwards MD [address] [place] [id number] PCP - General Internal Medicine 07/18/21
[2025-07-03 01:18] VITALS: BP 117/68; PULSE 94; RESP 16; TEMP 36.7; O2SAT 97
== END 2025-07-03 01:20 | disposition home or self-care (01) ==
PROVIDERS: Emergency Provider Emergency Medicine; PCP Internal Medicine
DX: O26.892 Other specified pregnancy related conditions, second trimester (principal); Z3A.23 23 weeks gestation of pregnancy; K52.9 Noninfective gastroenteritis and colitis, unspecified; R11.2 Nausea with vomiting, unspecified; R10.13 Epigastric pain
CPT/HCPCS: 36415; 76705; 80053; 81003; 83690; 84702; 85025; 96361; 96374; 99284; 99285; J2405; J7120

== ENCOUNTER → 2025-07-02 21:55 | Outpatient (BNV) | payer OTHER, SELFPAY | PROVIDERS: Emergency Provider Emergency Medicine; PCP Internal Medicine; Visit Provider Student in an Organized Health Care Education/Training Program | DX: Z3A.23 23 weeks gestation of pregnancy (principal) | CPT/HCPCS: 76705 ==